=== PATIENT | female | born 1995 | race Caucasian/White ===

== ENCOUNTER 2021-04-27 19:30 | Emergency (ER) | payer OTHER, BC ==
[~2021-04-27] VITALS: Ht 172.7 cm; Wt 72.6 kg
[~2021-04-27 19:30] MED LIST: ACETAMINOPHEN-1 EAC1 PO; NAPROSYN500 MG PO
[2021-04-27] MEDS ORDERED: LEVO-T50 MCG (19:57)
[2021-04-27] MEDS ORDERED: GLUMETZA500 (19:58)
[2021-04-27] MEDS ORDERED: PAXIL20 MG (19:58)
[2021-04-27] MEDS ORDERED: VITAMIN D21250 MCG (19:58)
[2021-04-27] MEDS ORDERED: SPIRONOLACTONE50 MG (19:58)
[2021-04-27] MEDS ORDERED: NORCO5 PO ×2 (21:41→21:47)
[2021-04-27 21:56] VITALS: BP 112/70
== END 2021-04-27 21:56 | disposition home or self-care (01) ==
LOC: M.ERS 19:30
DX: S42.017A Nondisplaced fracture of sternal end of right clavicle, initial encounter for closed fracture (principal); Z79.899 Other long term (current) drug therapy; V89.2XXA Person injured in unspecified motor-vehicle accident, traffic, initial encounter; Y93.89 Activity, other specified; Y92.89 Other specified places as the place of occurrence of the external cause; Y99.8 Other external cause status